=== PATIENT | female | born 2000 | race Two or more races ===

== ENCOUNTER 2023-01-19 17:36 | Emergency (ER) | payer MEDICAID ==
[~2023-01-19] VITALS: Ht 170.2 cm; Wt 68.0 kg
[2023-01-19 17:46] VITALS: BP 116/70; TEMP 98.9; O2SAT 97
[2023-01-19] MEDS ORDERED: ACET-2605 PO (18:16)
[2023-01-19] MEDS ORDERED: AMOX500C2 PO (18:16)
== END 2023-01-19 18:24 | disposition home or self-care (01) ==
LOC: ER 17:55
DX: J02.9 Acute pharyngitis, unspecified (principal)